=== PATIENT | male | born 1990 | race Caucasian/White ===

== ENCOUNTER 2020-06-05 17:09 | Emergency (ER) | payer MEDICAID, OTHER, SELFPAY ==
--- NOTE | 2020-06-05 17:23 | NUR ---
CALLED FOR PT. PT NOT IN LOBBY
--- NOTE | 2020-06-05 17:30 | NUR ---
CALLED FOR PT. PT NOT IN LOBBY
--- NOTE | 2020-06-05 17:44 | NUR ---
CALLED FOR PT. PT NOT IN LOBBY
== END 2020-06-05 17:47 | disposition home or self-care (01) ==
LOC: ED 17:40
DX: R06.02 Shortness of breath (principal); R05 Cough; R19.7 Diarrhea, unspecified; Z53.21 Procedure and treatment not carried out due to patient leaving prior to being seen by health care provider